=== PATIENT | female | born 1975 | race Caucasian/White ===

== ENCOUNTER 2022-07-06 11:00 | Outpatient (RCR) | payer BC ==
[2022-06-28 16:20] VITALS: BP 0/0
[2022-06-28 16:36] LABS: BASOPHILS # (AUTO) 0.1 10^3/uL (0.0-0.1); BASOPHILS % (AUTO) 1 % (0-10); EOSINOPHILS # (AUTO) 0.5 10^3/uL (0.0-0.3); EOSINOPHILS % (AUTO) 7 % (0-10); HEMATOCRIT 38 % (35-52); HEMOGLOBIN 13.2 g/dL (11.5-16.0); LYMPHOCYTES # (AUTO) 2.7 10^3/uL (1.0-4.0); LYMPHOCYTES % (AUTO) 39 % (12-44); MEAN CORPUSCULAR HEMOGLOBIN 32 pg (25-34); MEAN CORPUSCULAR HGB CONC 35 g/dL (32-36); MEAN CORPUSCULAR VOLUME 91 fL (80-99); MEAN PLATELET VOLUME 10.9 fL (9.0-12.2); MONOCYTES # (AUTO) 0.6 10^3/uL (0.0-1.0); MONOCYTES % (AUTO) 9 % (0-12); NEUTROPHILS # (AUTO) 3.1 10^3/uL (1.8-7.8); NEUTROPHILS % (AUTO) 44 % (42-75); PLATELET COUNT 263 10^3/uL (130-400); WHITE BLOOD COUNT 6.9 10^3/uL (4.3-11.0)
[2022-06-28 16:56] LABS: ERYTHROCYTE SEDIMENTATION RATE 11 MM/HR (0-20)
[2022-06-28 17:00] LABS: ALBUMIN 4.3 GM/DL (3.2-4.5)
[2022-06-28 17:01] LABS: POTASSIUM 3.8 MMOL/L (3.6-5.0)
[2022-06-28 17:03] LABS: TOTAL PROTEIN 7.1 GM/DL (6.4-8.2)
[2022-06-28 17:05] LABS: BILIRUBIN,TOTAL 0.4 MG/DL (0.1-1.0)
[2022-06-28 17:07] LABS: CREATININE SERUM 0.62 MG/DL (0.60-1.30)
[~2022-07-06] VITALS: Ht 170.2 cm; Wt 72.7 kg
[~2022-07-06 11:00] MED LIST: CARI350T27 PO; LEVO200T42 PO
[2022-07-06 11:40] VITALS: BP 102/73
[2022-07-06 11:52] LABS: BASOPHILS # (AUTO) 0.1 10^3/uL (0.0-0.1); BASOPHILS % (AUTO) 1 % (0-10); EOSINOPHILS # (AUTO) 0.4 10^3/uL (0.0-0.3); EOSINOPHILS % (AUTO) 6 % (0-10); HEMATOCRIT 39 % (35-52); HEMOGLOBIN 13.1 g/dL (11.5-16.0); LYMPHOCYTES % (AUTO) 32 % (12-44); MEAN CORPUSCULAR HEMOGLOBIN 31 pg (25-34); MEAN CORPUSCULAR HGB CONC 34 g/dL (32-36); MEAN CORPUSCULAR VOLUME 93 fL (80-99); MEAN PLATELET VOLUME 10.6 fL (9.0-12.2); MONOCYTES # (AUTO) 0.5 10^3/uL (0.0-1.0); MONOCYTES % (AUTO) 9 % (0-12); NEUTROPHILS # (AUTO) 3.1 10^3/uL (1.8-7.8); NEUTROPHILS % (AUTO) 52 % (42-75); PLATELET COUNT 268 10^3/uL (130-400); WHITE BLOOD COUNT 6.1 10^3/uL (4.3-11.0)
[2022-07-06 12:06] LABS: POTASSIUM 3.9 MMOL/L (3.6-5.0)
[2022-07-06 12:07] LABS: CALCIUM 8.7 MG/DL (8.5-10.1)
[2022-07-06 12:08] LABS: TOTAL PROTEIN 6.7 GM/DL (6.4-8.2)
[2022-07-06 12:10] LABS: BILIRUBIN,TOTAL 0.4 MG/DL (0.1-1.0)
[2022-07-06 12:12] LABS: CREATININE SERUM 0.56 MG/DL (0.60-1.30)
[2022-07-06 12:19] LABS: ERYTHROCYTE SEDIMENTATION RATE 8 MM/HR (0-20)
== END 2022-07-06 11:40 | disposition home or self-care (01) ==
LOC: SDC 11:00
PROVIDERS: ATTEND Internal Medicine Infectious Disease
DX: S61.259A Open bite of unspecified finger without damage to nail, initial encounter (principal); L03.019 Cellulitis of unspecified finger; W55.01XA Bitten by cat, initial encounter
CPT/HCPCS: 80053; 82550; 85025; 85652; 86141; G0463; 36415; 99211